=== PATIENT | male | born 1935 | race Caucasian/White ===

== ENCOUNTER 2018-05-05 05:17 | Observation (INO) | payer MEDICARE, OTHER ==
[2018-05-05] MEDS ORDERED: NITROGLYCERIN 0.4MG SL TABLET #25 BTL SL ONE (05:32)
[2018-05-05] MEDS ORDERED: NITROGLYCERIN 0.4MG SL TABLET #25 BTL SL PRN (05:32)
[2018-05-05 05:38] LABS: BASO % 0.4 % (0-6); EOS % 4.4 % (0-6); GRAN % 54.2 % (47-80); HEMATOCRIT 39.3 % (42.0-52.0); HEMOGLOBIN 11.8 gm/dl (14.0-18.0); MEAN CELL VOLUME 83.6 fl (81-97); MEAN CORPUSCULAR HEMOGLOBIN 25.1 pg (27-33); MEAN PLATELET VOLUME 11.3 fl (7.4-10.4); PLATELET COUNT 243 K/uL (130-400); RED CELL DISTRIBUTION WIDTH 13.6 % (11.5-14.5); WHITE BLOOD COUNT W/O DIFF 8.4 K/uL (4.2-12.2)
--- NOTE | 2018-05-05 05:39 | Emergency Department Record ---
History of Present Illness - General Chief Complaint: Chest Pain Stated Complaint: CHEST PAIN Time Seen by Provider: 05/05/18 05:26 Source: Patient Mode of Arrival: Ambulatory Limitations: No limitations - History of Present Illness Initial Comments: pt was awakened w chest pain that wrapped around his chest. no n/v, no radiation, no sob, no diaphoresis.pt hasnt had this before. it has eased MD Complaint: Chest pain Onset/Timin -: Minutes(s) Pain Location: Left chest Severity scale (1-10): 5 Quality: Tightness Consistency: Constant Improves With: Nothing Worsens With: Nothing Treatments Prior to Arrival: Aspirin - Related Data Home Medications Medication Instructions Recorded Confirmed Last Taken Finasteride [Proscar] 5 mg PO DAILY 05/05/18 05/05/18 Unknown Mirtazapine [Remeron] 15 mg PO QHS 05/05/18 05/05/18 Unknown Tamsulosin HCl [Flomax] 0.4 mg PO DAILY 05/05/18 05/05/18 Unknown Allergies Allergy/AdvReac Type Severity Reaction Status Date / Time codeine Allergy DIZZINESS Verified 11/30/14 11:27 Travel Screening - Travel/Exposure Within Last 30 Days Have you traveled within the last 30 days?: No Review of Systems Reviewed: No additional complaints except as noted below Constitutional: Reports: As per HPI. Denies: Chills, Fever, Malaise, Night sweats, Weakness, Weight change Eyes: Reports: As per HPI. Denies: Eye discharge, Eye pain, Photophobia, Vision change ENT: Reports: As per HPI. Denies: Congestion, Dental pain, Ear pain, Epistaxis , Hearing loss, Throat pain Respiratory: Reports: As per HPI. Denies: Cough, Dyspnea, Hemoptysis, Stridor, Wheezes Cardiovascular: Reports: As per HPI, Chest pain. Denies: Arrhythmia, Dyspnea on exertion, Edema, Murmurs, Orthopnea, Palpitations, Paroxysmal nocturnal dyspnea, Rheumatic Fever, Syncope Endocrine: Reports: As per HPI. Denies: Fatigue, Heat or cold intolerance, Polydipsia, Polyuria Gastrointestinal: Reports: As per HPI. Denies: Abdominal pain, Constipation, Diarrhea, Hematemesis, Hematochezia, Melena, Nausea, Vomiting Genitourinary: Reports: As per HPI. Denies: Dysuria, Frequency, Hematuria, Incontinence, Retention, Testicular pain, Testicular mass, Urgency Musculoskeletal: Reports: As per HPI. Denies: Arthralgia, Back pain, Gout, Joint swelling, Myalgia, Neck pain Skin: Reports: As per HPI. Denies: Bruising, Change in color, Change in hair/ nails, Lesions, Pruritus, Rash Neurological: Reports: As per HPI. Denies: Abnormal gait, Confusion, Headache, Numbness, Paresthesias, Seizure, Tingling, Tremors, Vertigo, Weakness Psychiatric: Reports: As per HPI. Denies: Anxiety, Auditory hallucinations, Depression, Homicidal thoughts, Suicidal thoughts, Visual hallucinations Hematological/Lymphatic: Reports: As per HPI. Denies: Anemia, Blood Clots, Easy bleeding, Easy bruising, Swollen glands Past Medical History - SOCIAL HISTORY Smoking Status: Former smoker Alcohol Use: None Drug Use: None - RESPIRATORY Hx Respiratory Disorders: No - CARDIOVASCULAR Hx Cardio Disorders: No - NEURO Hx Neuro Disorders: Yes Hx TIA: Yes - GI Hx GI Disorders: No - Hx Genitourinary Disorders: Yes Hx Prostate Problems: Yes (BPH) - ENDOCRINE Hx Endocrine Disorders: No - MUSCULOSKELETAL Hx Musculoskeletal Disorders: Yes Hx Arthritis: Yes (Left elbow) - PSYCH Hx Psych Problems: No - HEMATOLOGY/ONCOLOGY Hx Hematology/Oncology Disorders: Yes Hx Cancer: Yes (Lung) Hx Chemotherapy: Yes (2017) Hx Radiation Therapy: No Family Medical History Any Significant Family History?: Yes Hx Heart Disease: Brother/Sister Physical Exam - General General Appearance: Alert, Oriented x3, Cooperative, Mild distress - Head Head exam: Normal inspection - Eye Eye exam: Normal appearance, PERRL, EOMI Pupils: Normal accommodation - ENT ENT exam: Normal exam, Mucous membranes moist, Normal external ear exam, Normal orophraynx Ear exam: Normal external inspection. negative: External canal tenderness Nasal Exam: Normal inspection. negative: Discharge, Sinus tenderness Mouth exam: Normal external inspection, Tongue normal Teeth exam: Normal inspection. negative: Dental caries Throat exam: Normal inspection. negative: Tonsillar erythema, Tonsillar exudate - Neck Neck exam: Normal inspection, Full ROM. negative: Tenderness - Respiratory Respiratory exam: Normal lung sounds bilaterally. negative: Respiratory distress - Cardiovascular Cardiovascular Exam: Regular rate, Normal rhythm, Normal heart sounds - GI/Abdominal GI/Abdominal exam: Soft, Normal bowel sounds. negative: Tenderness - Rectal Rectal exam: Deferred - exam: Deferred - Extremities Extremities exam: Normal inspection, Full ROM, Normal capillary refill. negative: Tenderness - Back Back exam: Reports: Normal inspection, Full ROM. Denies: Muscle spasm, Rash noted, Tenderness - Neurological Neurological exam: Alert, CN II-XII intact, Normal gait, Oriented X3 - Psychiatric Psychiatric exam: Normal affect, Normal mood - Skin Skin exam: Dry, Intact, Normal color, Warm Course Vital Signs 05/05/18 05:18 Temperature 97.7 F Pulse Rate 70 Respiratory 20 Rate Blood Pressure 167/87 Pulse Ox 98 - Reevaluation(s) Reevaluation #1: 05/05/18 06:07 care being assumed by dr klein pending cta results Reevaluation #2: 05/05/18 06:10 ntg made pain better but bottomed pressure out. Medical Decision Making - Lab Data Result diagrams: 05/05/18 05:30 05/05/18 05:30 Disposition Forms: Patient Portal Access Quality - Blood Pressure Screening Does Patient Have Any of the Following: No Blood Pressure Classification: Pre-Hypertensive BP Reading Systolic Measurement: 167 Diastolic Measurement: 87 Screening for High Blood Pressure: < Pre-Hypertensive BP, F/U Documented > [ G8950]
[2018-05-05 05:48] LABS: BLOOD UREA NITROGEN 14 mg/dL (8-23); EST GLOMERULAR FILTRATION RATE > 60 mL/min
[2018-05-05 05:51] LABS: GLUCOSE,RANDOM 101 mg/dL (74-109)
[2018-05-05 05:54] LABS: CREATINE PHOSPHOKINASE 29 U/L (39-308)
[2018-05-05 06:20] LABS: CKMB 1.2 ng/mL (<6.73)
--- NOTE | 2018-05-05 08:16 | Emergency Department Record ---
History of Present Illness - General Chief Complaint: Chest Pain Stated Complaint: CHEST PAIN Time Seen by Provider: 05/05/18 05:26 Source: Patient Mode of Arrival: Ambulatory Limitations: No limitations - History of Present Illness Onset/Timin -: Minutes(s) Pain Location: Left chest Severity scale (1-10): 5 Quality: Tightness Consistency: Constant Improves With: Nothing Worsens With: Nothing Treatments Prior to Arrival: Aspirin - Related Data Home Medications Medication Instructions Recorded Confirmed Last Taken Finasteride [Proscar] 5 mg PO DAILY 05/05/18 05/05/18 Unknown Mirtazapine [Remeron] 15 mg PO QHS 05/05/18 05/05/18 Unknown Tamsulosin HCl [Flomax] 0.4 mg PO DAILY 05/05/18 05/05/18 Unknown Allergies Allergy/AdvReac Type Severity Reaction Status Date / Time codeine Allergy DIZZINESS Verified 11/30/14 11:27 Travel Screening - Travel/Exposure Within Last 30 Days Have you traveled within the last 30 days?: No Review of Systems Constitutional: Reports: As per HPI. Denies: Chills, Fever, Malaise, Night sweats, Weakness, Weight change Eyes: Reports: As per HPI. Denies: Eye discharge, Eye pain, Photophobia, Vision change ENT: Reports: As per HPI. Denies: Congestion, Dental pain, Ear pain, Epistaxis , Hearing loss, Throat pain Respiratory: Reports: As per HPI. Denies: Cough, Dyspnea, Hemoptysis, Stridor, Wheezes Cardiovascular: Reports: As per HPI, Chest pain. Denies: Arrhythmia, Dyspnea on exertion, Edema, Murmurs, Orthopnea, Palpitations, Paroxysmal nocturnal dyspnea, Rheumatic Fever, Syncope Endocrine: Reports: As per HPI. Denies: Fatigue, Heat or cold intolerance, Polydipsia, Polyuria Gastrointestinal: Reports: As per HPI. Denies: Abdominal pain, Constipation, Diarrhea, Hematemesis, Hematochezia, Melena, Nausea, Vomiting Genitourinary: Reports: As per HPI. Denies: Dysuria, Frequency, Hematuria, Incontinence, Retention, Testicular pain, Testicular mass, Urgency Musculoskeletal: Reports: As per HPI. Denies: Arthralgia, Back pain, Gout, Joint swelling, Myalgia, Neck pain Skin: Reports: As per HPI. Denies: Bruising, Change in color, Change in hair/ nails, Lesions, Pruritus, Rash Neurological: Reports: As per HPI. Denies: Abnormal gait, Confusion, Headache, Numbness, Paresthesias, Seizure, Tingling, Tremors, Vertigo, Weakness Psychiatric: Reports: As per HPI. Denies: Anxiety, Auditory hallucinations, Depression, Homicidal thoughts, Suicidal thoughts, Visual hallucinations Hematological/Lymphatic: Reports: As per HPI. Denies: Anemia, Blood Clots, Easy bleeding, Easy bruising, Swollen glands Past Medical History - SOCIAL HISTORY Smoking Status: Former smoker Alcohol Use: None Drug Use: None - RESPIRATORY Hx Respiratory Disorders: No - CARDIOVASCULAR Hx Cardio Disorders: No - NEURO Hx Neuro Disorders: Yes Hx TIA: Yes - GI Hx GI Disorders: No - Hx Genitourinary Disorders: Yes Hx Prostate Problems: Yes (BPH) - ENDOCRINE Hx Endocrine Disorders: No - MUSCULOSKELETAL Hx Musculoskeletal Disorders: Yes Hx Arthritis: Yes (Left elbow) - PSYCH Hx Psych Problems: No - HEMATOLOGY/ONCOLOGY Hx Hematology/Oncology Disorders: Yes Hx Cancer: Yes (Lung) Hx Chemotherapy: Yes (2017) Hx Radiation Therapy: No Family Medical History Any Significant Family History?: Yes Hx Heart Disease: Brother/Sister Physical Exam - General Limitations: No limitations Course Vital Signs 05/05/18 05/05/18 05/05/18 05:18 05:38 05:43 Temperature 97.7 F Pulse Rate 70 Pulse Rate [ 68 71 [employer] ] Respiratory 20 20 20 Rate Blood Pressure 167/87 Blood Pressure 88/66 104/73 [Right Arm] Pulse Ox 98 97 95 05/05/18 07:51 Temperature Pulse Rate Pulse Rate [ 66 [employer] ] Respiratory 20 Rate Blood Pressure Blood Pressure 135/84 [Right Arm] Pulse Ox 97 - Reevaluation(s) Reevaluation #1: The patient's care was assumed from Dr. Kumari. The patient presently is doing very well and denies any pain or discomfort. I did explain to the patient that his evaluation so far has been WNL's. The CT scan did not demonstrate any acute abnormality. Due to the previous CP I did recommend hospital admission and he did accept the plan. I then did discuss the case with Dr. Magana and he did accept the admission. 05/05/18 08:13 Medical Decision Making - Data Complexity MDM Data: Labs Ordered and/or Reviewed, X-Ray Ordered and/or Reviewed - Lab Data Result diagrams: 05/05/18 05:30 05/05/18 05:30 Lab Results 05/05/18 05/05/18 05/05/18 Range/Units 05:30 05:30 05:30 WBC 8.4 (4.2-12.2) K/uL RBC 4.70 (4.40-5.70) M/uL Hgb 11.8 L (14.0-18.0) gm/dl Hct 39.3 L (42.0-52.0) % MCV 83.6 (81-97) fl MCH 25.1 L (27-33) pg MCHC 30.0 L (32-36) g/dl RDW 13.6 (11.5-14.5) % Plt Count 243 (130-400) K/uL MPV 11.3 H (7.4-10.4) fl Gran % 54.2 (47-80) % Lymphocytes % 31.0 (16-45) % Monocytes % 10.0 H (0-9) % Eosinophils % 4.4 (0-6) % Basophils % 0.4 (0-6) % D-Dimer 2.02 H (0-0.59) mg/L FEU Sodium 142 (136-145) mmol/L Potassium 4.4 (3.4-4.5) mmol/L Chloride 105 (98-107) mmol/L Carbon Dioxide 27.0 (22-29) mmol/L Anion Gap 10.0 (7-16) BUN 14 (8-23) mg/dL Creatinine 1.0 (0.7-1.2) mg/dL Estimated GFR > 60 mL/min Random Glucose 101 (74-109) mg/dL Calcium 9.5 (8.8-10.2) mg/dL Creatine Kinase 29 L (39-308) U/L CK-MB (CK-2) 1.2 (<6.73) ng/mL Troponin T < 0.010 (0-0.010) ng/mL NT-Pro-B Natriuret Pep 199.40 (<450) pg/mL - Radiology Data Radiology results: Report reviewed (CT: Neg for PE.) Disposition Disposition: Admit Clinical Impression: Chest pain Qualifiers: Chest pain type: unspecified Qualified Code(s): R07.9 - Chest pain, unspecified Disposition: Still a Patient at [facility] Decision to Admit: Admit from ER Decision to Admit Date: 05/05/18 Decision to Admit Time: 08:15 Accepting Physician: Izzy Time Discussed w/Accepting Physician: 08:15 Condition: (2) Stable Forms: Patient Portal Access Time of Disposition: 08:15 Quality - Quality Measures Quality Measures: N/A - Blood Pressure Screening View Details: Yes Does Patient Have Any of the Following: No Blood Pressure Classification: Pre-Hypertensive BP Reading Systolic Measurement: 167 Diastolic Measurement: 87 Screening for High Blood Pressure: < Pre-Hypertensive BP, F/U Documented > [ G8950] Pre-Hypertensive Follow-up Interventions: Referral to alternative/primary care provider.
[2018-05-05] MEDS ORDERED: 0.9% SODIUM CHLORIDE 250ML BAG IV ONE (08:32)
[2018-05-05] MEDS ORDERED: ACETAMINOPHEN 325 MG TAB PO PRN (09:14)
[2018-05-05] MEDS ORDERED: ASPIRIN 325 MG TAB ENTERIC-COATED PO SCH (10:00)
[2018-05-05] MEDS ORDERED: TAMSULOSIN HCL 0.4 MG CAP.ER.24H PO SCH (10:00)
[2018-05-05] MEDS ORDERED: Non-Formulary MISC (Finasteride [Proscar] 5 MG) PO SCH (10:00)
[2018-05-05] MEDS ORDERED: PANTOPRAZOLE SODIUM 40 MG TABLET PO ONE (12:31)
--- NOTE | 2018-05-05 14:24 | Discharge Note ---
VTE H&P Assessment - Risk for VTE Risk for VTE: Yes Risk Level: Moderate Risk Assessment Date: 05/05/18 Risk Assessment Time: 14:21 VTE Orders Placed or Will Be Placed: Yes Discharge Medications - Discharge Medications Prescriptions: Omeprazole 20 mg PO DAILY #30 tab Home Medications: Ambulatory Orders Aspirin [Aspirin EC] 81 mg PO DAILY 11/30/14 [Last Taken 11/29/14] Finasteride [Proscar] 5 mg PO DAILY 05/05/18 [Last Taken Unknown] Omeprazole 20 mg PO DAILY #30 tab 05/05/18 [Last Taken Unknown] Tamsulosin HCl [Flomax] 0.4 mg PO DAILY 05/05/18 [Last Taken Unknown] Discharge Note - Date Date of Discharge Note: 05/05/18 Disposition: Home, Self-Care Condition: (2) Stable Additional Instructions: follow up with Dr Magana on tuesday at 10:00 am in the office. take omeprazole 20 mg one a day Forms: Patient Portal Access
[2018-05-05] MEDS ORDERED: ENOXAPARIN 40 MG/0.4 ML SYR SQ SCH (14:30)
[2018-05-05] MEDS ORDERED: MIRTAZAPINE 15 MG TABLET PO SCH (22:00)
--- NOTE | 2018-05-07 16:14 | CT ANGIOGRAM REPORT ---
EXAM: CT ANGIOGRAM CHEST CTA w contrast HISTORY: CHEST PAIN AND TIGHTNESS BEGINNING THREE HOURS AGO. HISTORY OF RIGHT LUNG CARCINOMA, STATUS POST RIGHT LOWER LOBECTOMY. TECHNIQUE: Routine CTA examination of the chest is performed utilizing a pulmonary embolus protocol with 68 mL of Omnipaque-350 utilized. Maximum- intensity projection reformatted images in the coronal and sagittal planes are generated on an independent workstation and reviewed. COMPARISON: Two-view chest radiographic examination dated 11/30/2014. FINDINGS: Opacification of the pulmonary arteries is satisfactory for interpretation. No luminal filling defect is noted in the outflow tract, main arteries, lobar arteries, or proximal segmental arteries to suggest acute pulmonary embolic disease. The heart is not enlarged. Moderate to severe atherosclerotic calcification of the left coronary artery and its branches is noted. Moderate atherosclerotic calcification of the right coronary artery. The thoracic aorta is diffusely atherosclerotic and without evidence of focal aneurysmal dilatation. The ascending thoracic aorta measures 3.2 cm in diameter. The lumen of the thoracic aorta is not diagnostically opacified. No mediastinal or hilar mass/lymphadenopathy is seen. There are changes of right thoracotomy and lower lobectomy. There is retained secretions within the right lower lobe bronchus stump. The central airways are otherwise clear. Moderate bilateral emphysema is noted in the upper lungs associated with pleural and parenchymal scarring. No lung consolidation. There is mild dependent atelectasis within each lung, left greater than right. No suspicious lung nodule. There is a very small right basilar pleural effusion. No pericardial effusion. The adrenal glands are not enlarged. A percutaneous gastrostomy tube is in place with its bulb in the gastric body. A couple of calcified granulomata are noted within the liver. No lytic or blastic bone lesion. There is mild heterogeneity throughout the thyroid without definite nodule. There is a large gastric hiatal hernia. There are diverticula scattered throughout the visualized colon without evidence of diverticulitis. IMPRESSION: 1. NO CT EVIDENCE OF ACUTE PULMONARY EMBOLIC DISEASE. 2. STATUS POST RIGHT THORACOTOMY AND RIGHT LOWER LOBECTOMY. SMALL AMOUNT OF RETAINED SECRETIONS/MUCOUS PLUGGING IN THE RIGHT LOWER LOBE BRONCHUS STUMP. 3. SEVERE BILATERAL EMPHYSEMA. 4. LARGE HIATAL HERNIA. JOB NUMBER: [id number] [facility]
--- NOTE | 2018-05-08 09:50 | History and Physical Report ---
DATE OF ADMISSION: 05/05/2018 CHIEF COMPLAINT: Chest pain. HISTORY OF CHIEF COMPLAINT: This 82-year-old male who states he woke up at 4 a.m., went to the restroom, felt a chest tightness in his chest. He stated he felt like he had to burp. Ambulance was called, he came into the hospital for evaluation. He was not diaphoretic, no nausea or vomiting. He denies any neck, back, or arm pain. He was evaluated by Dr. Kumari initially and Dr. Meier, followup EKG showing no acute change. First set of cardiac enzymes were negative. He had a slightly elevated D-Dimer, he had a CTA of the chest, which was negative for PE. He was admitted for serial cardiac enzymes. At my evaluation, he denied any chest pain, he is feeling much better. PAST MEDICAL HISTORY: He has lung cancer, resection in 2004 and in remission. A lobe of the lung was removed. He has benign prostatic hyperplasia. He has a hiatal hernia that was surgically fixed in 2017 with a feeding tube. PAST SURGICAL HISTORY: Left hand surgery, tonsils and adenoids, appendectomy, lower lobe of the right lung removed in 2004, hiatal hernia repair in 2017. He has had some TIAs in the past. He is on aspirin therapy. He has arthritis of the left elbow. He had chemotherapy in 2017. MEDICATIONS ON ADMISSION: 1. Flomax 0.4 mg daily. 2. Proscar 5 mg daily. 3. Aspirin 81 mg daily. 4. He did take 1 Remeron which knocked him out last night, it was too strong. He is not planning on taking any more of that. He has not had that for 2 weeks. That was given to him because his son thought he had depression and that was what was started. ALLERGIES: CODEINE. FAMILY PSYCHOSOCIAL HISTORY: Brother and sister had heart disease. He is a former smoker. No alcohol or drug use. REVIEW OF SYSTEMS: HEENT: No upper respiratory infectious symptoms, cough, cold, or congestion. CARDIOVASCULAR: See chief complaint. He had some chest pain, which he described as kind of a pressure band-like feeling. No pain at this time. He also felt like he had to belch. No dyspnea. RESPIRATORY: He is a former smoker. No inhalers, no signs of COPD. No cough, cold, or congestion. GASTROINTESTINAL: He has a feeding tube in. He had a hiatal hernia repair in 2017. He also may have had his lung surgery at that time, he is a little unclear on his dates. His sister, who he is living with in [place], is more medically oriented. He normally lives half the time in [place] and half the time in [place]. GENITOURINARY: He has benign prostatic hypertrophy. He had a TURP done. He has no problems urinating at this time. NEUROLOGIC: He has had some TIAs in the past, but no residual paralysis. On aspirin therapy. ENDOCRINE: No diabetes or thyroid disease. PHYSICAL EXAMINATION: GENERAL: Height is 5 feet 7 inches. Weight is 143 pounds on standing scale. VITAL SIGNS: Temperature is 97.7, pulse is 63, blood pressure is 151/73, respiratory rate is 16, pulse OX is 98% on room air. HEENT: Pupils are equal, round, and reactive to light and accomodation. Extraocular muscles intact. Throat is clear. Nose is clear. Tympanic membranes are tam. NECK: Supple. No jugular venous distention, no carotid bruits. CARDIOVASCULAR: Regular rate and rhythm without murmurs, clicks, rubs, or gallops. RESPIRATORY: Clear to auscultation. Breath sounds are equal bilaterally. ABDOMEN: Soft, nontender. There is a feeding tube in place. No rebound or rigidity. EXTREMITIES: No pitting edema, moving all 4 extremities. NEUROLOGIC: No CVA, paralysis, or paresthesias. Babinski's negative. Oriented x3. Cranial nerves II through XII intact. Deep tendon reflexes equal bilaterally. SKIN: No abnormalities of the skin noted. IMPRESSION: 1. Chest pain. 2. Gastroesophageal reflux disease. 3. Hiatal hernia with surgery and feeding tube. 4. History of lung cancer and lobectomy in 2004. 5. Benign prostatic hyperplasia. PLAN: 1. Serial cardiac enzymes to decide if he can go home after that, may need to do some outpatient testing. 2. Start Protonix orally 40 mg daily. MTDD
--- NOTE | 2018-05-08 09:50 | Discharge Summary ---
DATE OF ADMISSION: DATE OF DISCHARGE: 05/05/2018 at 2:26 p.m. Attending physician: Liu Magana DO DISCHARGE DIAGNOSES: 1. Chest pain. 2. Gastroesophageal reflux disease. 3. Hiatal hernia with surgical repair and a feeding tube. 4. Status post lung cancer with a right lower lobe lobectomy. 5. Status post benign prostatic hyperplasia. HISTORY OF PRESENT ILLNESS: This 82-year-old male who is visiting from [place], his sister came into the emergency department at 4 a.m. stating he woke up with a tightness in his chest, kind of a band around his lower ribs, he also stated he felt like he had to burp. The patient otherwise came into the emergency department by ambulance. Cardiac enzymes were negative. EKG was no acute changes. He was evaluated by both Dr. Kumari and Dr. Meier and Dr. Meier wanted him put in for serial enzymes to make sure he did not have a subtle PR. SIGNIFICANT FINDINGS: EKG showing no acute changes. Cardiac enzymes x2 were negative. The patient was pain-free when I evaluated him. He was wanting to go home. We talked about his symptoms and with his hiatal hernia repair and the feeding tube, it appears that he had reflux, which caused his chest pain, and at this point we will discharge him and have him follow up with me as an outpatient and we can decide if we need to do any more cardiac testing before he goes back to [place] at that time. CONDITION ON DISCHARGE: Much improved and not in any chest pain. DISCHARGE INSTRUCTIONS: Followup with Dr. Magana on Tuesday 10:00 a.m. on 05/08. He will start omeprazole 20 mg a day. We will continue his home medications of aspirin 81 mg a day, Proscar 5 mg a day, Flomax 0.4 mg a day. We will stop the Remeron. He stated that he not taken that for 2 weeks. He took one and it kind of wiped him out last night. It may have something to do with what happened. He stated that that was given to him because he has depression, but he does not have depression, by his family doctor in [place], Dr. Kumari. We will prescribe a new prescription omeprazole 20 mg a day, send it in Tuesday. [facility]
== END 2018-05-05 16:30 | disposition home or self-care (01) ==
LOC: ER 05:17 → MEDSURG 08:35
PROVIDERS: ADMIT Emergency Medicine; ATTEND Emergency Medicine
DX: R07.9 Chest pain, unspecified (principal); N40.0 Benign prostatic hyperplasia without lower urinary tract symptoms; M19.90 Unspecified osteoarthritis, unspecified site; Z86.73 Personal history of transient ischemic attack (TIA), and cerebral infarction without residual deficits; Z85.118 Personal history of other malignant neoplasm of bronchus and lung; Z87.891 Personal history of nicotine dependence
CPT/HCPCS: 71275; 80048; 82550; 82553; 83880; 84484; 85025; 85379; 93005; 93010; 99236; 99285; J1650